=== PATIENT | male | born 1960 | race Caucasian/White ===

== ENCOUNTER → 2017-05-14 | Outpatient (CLI) | payer BC ==
[~2017-05-14] MED LIST: PEN-VEE K PO; TYLENOL #3 PO
--- NOTE | ~2017-05-14 | US136 ---
[facility] A Service of [facility] RADIOLOGY TEXT RESULTS PATIENT: NISREEN MARIA LOCATION: CNIV : 64 UNIT #: [id number] AGE: [address]: Anupam Zaidi MD SEX: M ORDER DR: [id number] [facility] [address] [place], [place] [address] [id number] O MR#: [id number] [facility] #: [id number] NAME: NISREEN MARIA : 1960 SEX: M STUDY DATE/TIME: 05/14/2017 10:39 UNIT: CNIV ROOM: STUDY DESCRIPTION: US U/L Ext Art Study [facility] Attending Physician: Anupam Zaidi M.D. Ordering Physician: Anupam Zaidi M.D. Primary Care Physician: Anupam Zaidi M.D. MEDICAL IMAGING REPORT This report is preliminary unless electronic signature is present EXAM Bilateral lower extremity arterial study, limited. INDICATION History of DVT. Tobacco use. Bilateral claudication, bilateral burning sensation, numbness, tingling. Symptoms for 4 months. TECHNIQUE Ankle-brachial indices performed bilaterally. All pressure measurements are in mmHg. FINDINGS Right brachial pressure 135, left brachial pressure 129. Distal right lower extremity pressures as follows: Dorsalis pedis at ankle 118, posterior tibial at ankle 109, great toe 85. Ankle-brachial index 0.87. Pulse volume recordings multiphasic but low in amplitude. Biphasic at the great toe. On the left, distal pressures as follows: Posterior tibial at ankle 132, dorsalis pedis at ankle 116, great toe 85. Ankle-brachial index 0.98. Pulse volume recordings biphasic to very weakly triphasic at the ankle. Better amplitude than on the right. Biphasic at the left great toe. IMPRESSION 1. Ankle-brachial index of 0.87 on the right suggests mild atherosclerotic arterial disease in the right lower extremity. Level of greatest involvement unclear on basis of this examination. 2. The ankle-brachial index on the left is 0.98. This is a normal value suggesting adequate perfusion of the left lower extremity in the resting state. 3. Toe-brachial indices of 0.63 bilaterally, with relatively pronounced STS. [facility] A Service of [facility] RADIOLOGY TEXT RESULTS PATIENT: NISREEN MARIA LOCATION: CNIV : 64 UNIT #: [id number] AGE: [address]: Anupam Zaidi MD SEX: M ORDER DR: pressure gradients between the ankles and great toes bilaterally raising the possibility of hemodynamically significant small vessel disease in the bilateral feet. Correlate clinically. If it would assist in management, further anatomic assessment lower extremity arterial system could be pursued with CT angiography. Dictated by... Arturo Vogel M.D. THIS IS AN ELECTRONICALLY VERIFIED REPORT Arturo Vogel M.D. at 05/16/2017 9:39 PM MARCUS/leo TD: 05/15/2017 13:50 JOB #: [id number] MEDICAL IMAGING REPORT Page 1 of 1 COPY
== END | disposition home or self-care (01) ==
LOC: CNIV 10:29
DX: I73.9 Peripheral vascular disease, unspecified (principal); Z72.0 Tobacco use
CPT/HCPCS: 93922